=== PATIENT | female | born 1940 | race Caucasian/White ===

== ENCOUNTER 2018-05-08 12:09 | Inpatient (IN) | payer MEDICARE, OTHER ==
[2018-05-08] VITALS (8 sets, daily range): BP systolic 117–149; BP diastolic 65–74
[~2018-05-08] VITALS: Ht 157.5 cm; Wt 53.1 kg
--- NOTE | ~2018-05-08 | OP ---
PATIENT NAME: HARSH MUSTAFA MEDICAL RECORD: [id number] :38 LOCATION:[id number] ADMISSION DATE:05/08/18 SURGEON: MARTHA CHENG MD DATE OF OPERATION: 05/09/2018 PREOPERATIVE DIAGNOSES: 1. Left distal radius fracture. 2. Acute carpal tunnel syndrome. POSTOPERATIVE DIAGNOSES: 1. Left distal radius fracture. 2. Acute carpal tunnel syndrome. PROCEDURE: Open reduction internal fixation of left distal radius fracture, carpal tunnel release. SURGEON: Martha Cheng MD ANESTHESIA: General. INTRAOPERATIVE COMPLICATIONS: None. SUMMARY OF PATHOLOGIC FINDINGS: A very large hematoma in the carpal canal consistent with preoperative diagnosis of numbness and tingling in the hand. OPERATIVE SUMMARY IN DETAIL: After obtaining the appropriate preoperative orthopedic surgery consent as well as anesthetic consultation, evaluation and clearance, the patient was brought to the operating room and placed on the operating room table in supine position. After adequate general laryngeal mask airway was administered, tourniquet was placed on the proximal aspect of the left upper extremity. Left upper extremity was then prepped and draped in routine sterile fashion. Arm was elevated and exsanguinated, tourniquet was inflated to 250 mmHg. Gentle traction and countertraction maneuver was done for reduction and showed good position and placement after reduction on the fluoroscopic examination. Volar approach of Gilberto was utilized including the mid palmar crease for carpal tunnel release. Careful dissection was carried down. The median nerve was identified. Transverse carpal ligament was released in its entirety. At this point, the median nerve and flexor tendons were gently retracted to expose the bony surface of the fracture. Plate was then placed under fluoroscopic guidance. Serial and sequential drill and fill of both compression and locking screws were utilized to internally fixate the distal radius fracture. This was all done under fluoroscopic control. Final radiographs were taken in AP and lateral planes and submitted for radiologist review. Wound was copiously irrigated and closed with 2-0 Vicryl followed by 4-0 Prolene in a running fashion. Sterile dressings were applied. The patient had 2 skin tears on the back of her arm. These were also taken care with Opsites. Tourniquet was deflated. Volar splint was applied. The patient was awakened and taken to recovery room in stable condition. All final needle and sponge counts were correct. TRANSINT:[id number] Voice Confirmation ID: [id number] DOCUMENT ID: [id number] 05/13/2018 Edited to left, dmm. OPERATIVE REPORT [id number] HARSH MUSTAFA MD, MARTHA CORADO at 1035 CC: [id number] DICTATION DATE: 05/09/18 1046 MATERIALS BUYER: 05/09/18 1101 DIS IN 05/11/18 [id number] [place] [address]
[2018-05-08] MEDS ORDERED: XANAX0.5 MG PO (12:14)
[2018-05-08] MEDS ORDERED: BENTYL 20 MG TA20 MG PO (12:14)
[2018-05-08] MEDS ORDERED: LASIX40 MG PO (12:14)
[2018-05-08] MEDS ORDERED: SYMBICORT 80-10.2 GM INH (12:14)
[2018-05-08] MEDS ORDERED: ACETAMINOPHEN500 M1 PO (12:16)
[2018-05-08 14:13] LABS: BASOPHILS 0.1 % (0-2); EOSINOPHILS 0.1 % (0-7); HEMOGLOBIN 14.1 g/dL (12-16); IMMATURE GRANULOCYTES 0.3 % (0-5); MCH 30.9 pg (26.0-34.0); MCHC 33.6 g/dL (31.0-37.0); MCV 92.1 fL (80.0-100.0); MEAN PLATELET VOLUME 9.8 fL (7.4-10.4); MONOCYTES 2.3 % (2-11); NEUTROPHILS 92.2 % (40-80); PLATELET COUNT 202 10x3/uL (130-400); RBC 4.56 10x6/uL (4.00-5.40); RDW 14.6 % (11.5-14.5); WBC 15.5 10x3/uL (4.8-10.8)
[2018-05-08 14:27] LABS: ALBUMIN 3.7 g/dL (3.4-5.0); ANION GAP 12.9 mmol/L (8-16); BILIRUBIN - TOTAL 0.6 mg/dL (0.2-1.3); CALCIUM 9.8 mg/dL (8.5-10.1); CREATININE - SERUM 0.9 mg/dL (0.6-1.3); POTASSIUM - SERUM 3.9 mmol/L (3.5-5.1)
[2018-05-09] VITALS (8 sets, daily range): BP systolic 97–128; BP diastolic 50–72; Ht 157.5 cm; Wt 53.1 kg
[2018-05-09 01:04] LABS: APPEARANCE CLEAR (CLEAR); BILIRUBIN NEGATIVE (NEGATIVE); COLOR YELLOW (YELLOW); GLUCOSE NEGATIVE (NEGATIVE); KETONE NEGATIVE (NEGATIVE); NITRITE NEGATIVE (NEGATIVE); PROTEIN NEGATIVE (NEGATIVE); SPECIFIC GRAVITY 1.015 (1.005-1.020); UROBILINOGEN NORMAL (NORMAL)
[2018-05-10 04:07] VITALS: BP 132/66
[2018-05-10 05:40] LABS: BASOPHILS 0.2 % (0-2); EOSINOPHILS 0.2 % (0-7); HEMATOCRIT 39.4 % (36.0-48.0); HEMOGLOBIN 13.4 g/dL (12-16); IMMATURE GRANULOCYTES 0.3 % (0-5); LYMPHOCYTES 6.3 % (15-50); MCH 30.7 pg (26.0-34.0); MCV 90.4 fL (80.0-100.0); MEAN PLATELET VOLUME 11.2 fL (7.4-10.4); MONOCYTES 5.5 % (2-11); NEUTROPHILS 87.5 % (40-80); RBC 4.36 10x6/uL (4.00-5.40); RDW 14.3 % (11.5-14.5)
[2018-05-10 05:41] LABS: PLATELET COUNT 147 10x3/uL (130-400); WBC 11.2 10x3/uL (4.8-10.8)
[2018-05-10 05:56] LABS: ALBUMIN 2.9 g/dL (3.4-5.0); ANION GAP 15.3 mmol/L (8-16); BILIRUBIN - TOTAL 0.81 mg/dL (0.2-1.3); CALCIUM 9.4 mg/dL (8.5-10.1); CARBON DIOXIDE 22.4 mmol/L (21.0-32.0); CREATININE - SERUM 0.9 mg/dL (0.6-1.3); POTASSIUM - SERUM 4.7 mmol/L (3.5-5.1)
[2018-05-10 08:07] VITALS: BP 128/72
[2018-05-10 18:29] VITALS: BP 96/53
[2018-05-10 21:08] VITALS: BP 96/49
[2018-05-11 01:08] VITALS: BP 103/53
[2018-05-11 04:45] VITALS: BP 91/58
[2018-05-11 05:36] LABS: BASOPHILS 0.1 % (0-2); EOSINOPHILS 1.5 % (0-7); HEMATOCRIT 34.5 % (36.0-48.0); HEMOGLOBIN 11.5 g/dL (12-16); IMMATURE GRANULOCYTES 0.2 % (0-5); LYMPHOCYTES 9.3 % (15-50); MCHC 33.3 g/dL (31.0-37.0); MCV 90.1 fL (80.0-100.0); MEAN PLATELET VOLUME 9.9 fL (7.4-10.4); MONOCYTES 9.1 % (2-11); NEUTROPHILS 79.8 % (40-80); PLATELET COUNT 125 10x3/uL (130-400); RBC 3.83 10x6/uL (4.00-5.40); RDW 14.3 % (11.5-14.5); WBC 8.6 10x3/uL (4.8-10.8)
[2018-05-11 05:55] LABS: ALBUMIN 2.6 g/dL (3.4-5.0); BILIRUBIN - TOTAL 0.48 mg/dL (0.2-1.3); CARBON DIOXIDE 27.7 mmol/L (21.0-32.0); CREATININE - SERUM 0.9 mg/dL (0.6-1.3); PROTEIN - SERUM 6.1 g/dL (6.4-8.2)
[2018-05-11 06:05] LABS: ANION GAP 8.8 mmol/L (8-16); POTASSIUM - SERUM 3.5 mmol/L (3.5-5.1)
[2018-05-11 08:00] VITALS: BP 79/48
[2018-05-11] MEDS ORDERED: HYDROCODON-ACE1 EAC7 PO (12:13)
== END 2018-05-11 14:35 | disposition home or self-care (01) | DRG 511 ==
LOC: D.ER 12:09 → D.EDHOLD 17:31 → D.MS 17:31
PROVIDERS: Family Medicine; Orthopaedic Surgery
PROC: 01N50ZZ Release Median Nerve, Open Approach (ICD-10-PCS; 2018-05-09)
PROC: 0PSJ04Z Reposition Left Radius with Internal Fixation Device, Open Approach (ICD-10-PCS; principal; 2018-05-09 12:00)
DX: S52.502A Unspecified fracture of the lower end of left radius, initial encounter for closed fracture (principal); S32.592A Other specified fracture of left pubis, initial encounter for closed fracture; W18.30XA Fall on same level, unspecified, initial encounter; G56.02 Carpal tunnel syndrome, left upper limb